=== PATIENT | female | born 1975 | race American Indian/Alaskan Native ===

== ENCOUNTER 2020-11-16 07:37 | Inpatient (IN) | payer OTHER ==
[2020-11-16 09:03] LABS: Basophils % (Auto) 0.3 % (0.0-1.8); Eosinophils % (Auto) 0.1 % (0.0-4.3); Hematocrit 37.1 % (30.3-42.9); Lymphocytes # (Auto) 0.9 K/mm3 (1.2-5.4); Lymphocytes % (Auto) 7.7 % (13.4-35.0); Mean Corpuscular HGB Conc 32 % (30-34); Mean Corpuscular Volume 93 fl (79-97); Monocytes # (Auto) 0.4 K/mm3 (0.0-0.8); Platelet Count 343 K/mm3 (140-440); Red Cell Distribution Width 14.3 % (13.2-15.2)
[2020-11-16 09:25] LABS: Alanine Aminotransferase 12 units/L (7-56); Albumin 4.3 g/dL (3.9-5); Blood Urea Nitrogen 7 mg/dL (7-17); Calcium 9.5 mg/dL (8.4-10.2); Hemolysis Index 4
[2020-11-16 10:11] LABS: BUN/Creatinine Ratio 12
[2020-11-16] MEDS ORDERED: HYDROmorphone 1 MG/1 ML INJ IV ONE ×2 (10:20→14:07)
[2020-11-16] MEDS ORDERED: LACTATED RINGERS 1,000 ML IV ONE (10:20)
[2020-11-16] MEDS ORDERED: ONDANSETRON 4 MG/2 ML INJ IV ONE (10:22)
--- NOTE | 2020-11-16 11:24 | Emergency Department Report ---
ED General Adult HPI - General Chief complaint: Abdominal Pain Stated complaint: ABD PAIN, LOWER BACK PAIN PUI?: No Time Seen by Provider: 11/16/20 10:10 Source: patient, RN notes reviewed Mode of arrival: Ambulatory Limitations: No Limitations - History of Present Illness Initial comments: During the history and physical examination, I am chaperoned by CREWSDANIEL The patient is a 45-year-old female. She is not known to myself previously. She has a history of body mass index of 44.6, history of ovarian cyst, history of colposcopy, reports history of chocolate cyst on the left ovary, subsequent nephrectomy, and history of laparoscopic right-sided cystectomy. The patient does not have a history of renal colic or appendicitis that she is aware of. The patient presents to the ER today with a complaint of right paralumbar lower back pain that radiates to her right flank and right lower quadrant for the past 2 to 3 days. The pain is intermittent. The pain increases with palpation. It decreases with rest. There is nausea. There is no vomiting. There is no dysuria. No history of STI. No sexual partners within the past 6 months. Patient denies headache, neck pain, chest pain, shortness of breath, vomiting, diaphoresis, diarrhea, extremity weakness or numbness. -: Gradual, days(s) Location: back Radiation: abdomen, flank Severity scale (0 -10): 10 Quality: aching Consistency: intermittent Improves with: rest Worsens with: movement - Related Data Allergies Allergy/AdvReac Type Severity Reaction Status Date / Time No Known Allergies Allergy Verified 11/16/20 08:37 ED Review of Systems ROS: Stated complaint: ABD PAIN, LOWER BACK PAIN Other details as noted in HPI Constitutional: denies: fever, malaise, weakness Eyes: denies: eye discharge ENT: denies: epistaxis Respiratory: denies: cough Cardiovascular: denies: chest pain Gastrointestinal: abdominal pain, nausea. denies: vomiting Genitourinary: denies: dysuria Musculoskeletal: back pain Neurological: denies: weakness Hematological/Lymphatic: denies: easy bleeding ED Past Medical Hx - Past Medical History Previous Medical History?: No - Surgical History Past Surgical History?: No ED Physical Exam - General Limitations: No Limitations General appearance: alert, anxious, obese - Head Head exam: Present: atraumatic, normocephalic - Eye Eye exam: Present: normal appearance, EOMI. Absent: nystagmus - ENT ENT exam: Present: normal exam, normal orophraynx, mucous membranes moist, normal external ear exam - Neck Neck exam: Present: normal inspection, full ROM. Absent: tenderness, meningismus - Respiratory Respiratory exam: Present: normal lung sounds bilaterally. Absent: respiratory distress, wheezes, rales, rhonchi, stridor, decreased breath sounds - Cardiovascular Cardiovascular Exam: Present: regular rate, normal rhythm, normal heart sounds. Absent: bradycardia, tachycardia, irregular rhythm, systolic murmur, diastolic murmur, rubs, gallop - GI/Abdominal GI/Abdominal exam: Present: soft, tenderness. Absent: distended, guarding, rebound, rigid, pulsatile mass - Extremities Exam Extremities exam: Present: normal inspection, full ROM, other (2+ pulses noted in the bilateral upper and lower extremities. There is no palpable cord. negative Homans sign. Muscular compartments are soft. The pelvis is stable.). Absent: pedal edema, calf tenderness - Back Exam Back exam: Present: normal inspection, full ROM. Absent: tenderness, CVA tenderness (R), CVA tenderness (L), paraspinal tenderness, vertebral tenderness - Neurological Exam Neurological exam: Present: alert, oriented X3, normal gait, other (No facial droop. Tongue midline. Extraocular movements intact bilaterally. Facial sensation intact to light touch in V1, V2, V3 distribution bilaterally. 5 and a 5 strength in 4 extremities. Sensation intact to light touch in 4 extremities.). Absent: motor sensory deficit - Psychiatric Psychiatric exam: Present: normal affect, normal mood - Skin Skin exam: Present: warm, dry, intact, normal color. Absent: rash ED Course Vital Signs 11/16/20 11/16/20 11/16/20 08:30 08:32 08:34 Temperature 98.4 F Pulse Rate 88 Respiratory 14 14 Rate Blood Pressure 147/66 Blood Pressure 147/66 [Right] O2 Sat by Pulse 99 99 Oximetry 11/16/20 11/16/20 11/16/20 10:20 10:30 11:56 Temperature Pulse Rate 79 73 85 Respiratory 11 L 23 Rate Blood Pressure 147/66 139/58 149/66 Blood Pressure [Right] O2 Sat by Pulse 100 100 Oximetry 11/16/20 11/16/20 11/16/20 12:00 13:12 13:15 Temperature Pulse Rate 95 H 90 84 Respiratory 20 12 16 Rate Blood Pressure 149/66 149/66 149/66 Blood Pressure [Right] O2 Sat by Pulse 97 100 100 Oximetry - Reevaluation(s) Reevaluation #1: 11/16/20 11:22 Differential diagnosis, including but not limited to: Ovarian cyst, renal colic, appendicitis, torsion, PID, inflammatory bowel disease, perforation Assessment and plan: 45-year-old female, who was afebrile, with reassuring vital signs, with appropriate strength, sensation, no pulsatile abdominal mass, known history of ovarian cysts, no risk factors for PID, with back pain that radiates to the right lower quadrant and right lower quadrant tenderness. Place patient on cardiac cath rn. Perform gynecologic examination with reconciliation clerk when patient comfortable and able to tolerate exam. Obtain pelvic ul trasound, and CT scan of the abdomen pelvis. Treat patient's symptoms. Reassess after initial data points. The patient reports that she is not , and has not delivered or given within the past 6 weeks. I have discussed this plan of care with the patient, who is agreeable to the afo rementioned. Reevaluation #2: 11/16/20 12:20 Ultrasound reviewed and appreciated. Urinalysis reviewed and appreciated. Nursing team having difficulty obtaining peripheral IV access. I have evaluated this patient's external superficial upper extremity anatomy. Not able to appreciate any anatomy that would be suitable for cannulation. Patient refusing EJ placement and evaluation. Have advised patient that this will lead to a delay in care, as well as delay in acquisition of diagnostics. We discussed risks, benefits and alternatives. Patient has articulated understanding. Change hydromorphone to IM. Nursing team to contact IV team 11/16/20 12:38 I was able to establish 22-gauge IV aspects in the dorsal aspect of the right hand. CT scan informed that patient may receive her CT scan. 11/16/20 14:20 CT scan abdomen pelvis, pelvic ultrasound reviewed and appreciated. Patient found to have a probable uterine fibroid. She is also found to have a complex heterogeneous masslike lesion in the right adnexa, measuring 7.0 x 5.0 x 6.5 cm. The lesion is noted to be partially cystic, with internal hyperdensity, in the dependent portions of this lesion, suggesting possible hemorrhagic products. Left ovary not visualized secondary to history of surgery. She is also found to have right-sided hydronephrosis. No evidence of nephrolithiasis. Suspect that hydronephrosis is compressive secondary to right adnexal lesion. Contacted urology on-call, Dr. Blackman. Have discussed the patient's history, physical, laboratory studies, imaging findings, and overall clinical impression. He advises that the urology service can follow in consultation. Is amenable to having vascular surgery/interventional radiology consulted as well. Have discussed the patient's history, physical, laboratory studies, imaging studies with our beverage server on-call, Dr. Castillo. She accepts the patient to her service. I have also had extensive discussion with the patient regarding significance of laboratory studies, CT scan findings, and ultrasound findings. Patient declines pelvic examination at this time. Given CT scan and ultrasound findings, overall clinical picture, I think PID is very unlikely. Patient is amenable to admission and hospitalization. Currently awaiting callback from vascular surgery/interventional radiology. - Consultations Consultation #1: 11/16/20 14:29 discussed history physical lab and radiology studies with Dr Ha; his group will follow in consultation - EJ/Peripheral Line Arm R Time Out Performed: Yes Indications: nurses unable to establis Skin Cleansed in Sterile Fashion: Yes Size: 22 Dressing Placed: Tegaderm Patient Tolerated Procedure: other Additional Comments: Minimal infiltration noted, however, distal flow appreciated, patient endorses no pain. ED Medical Decision Making - Lab Data Result diagrams: 11/16/20 08:44 11/16/20 08:44 Vital Signs 11/16/20 11/16/20 11/16/20 08:30 08:32 08:34 Temperature 98.4 F Pulse Rate 88 Respiratory 14 14 Rate Blood Pressure 147/66 Blood Pressure 147/66 [Right] O2 Sat by Pulse 99 99 Oximetry Lab Results 11/16/20 11/16/20 Range/Units 08:44 08:44 WBC 11.1 H (4.5-11.0) K/mm3 RBC 4.00 (3.65-5.03) M/mm3 Hgb 12.0 (10.1-14.3) gm/dl Hct 37.1 (30.3-42.9) % MCV 93 (79-97) fl MCH 30 (28-32) pg MCHC 32 (30-34) % RDW 14.3 (13.2-15.2) % Plt Count 343 (140-440) K/mm3 Lymph % (Auto) 7.7 L (13.4-35.0) % Loup % (Auto) 4.0 (0.0-7.3) % Eos % (Auto) 0.1 (0.0-4.3) % Baso % (Auto) 0.3 (0.0-1.8) % Lymph # (Auto) 0.9 L (1.2-5.4) K/mm3 Loup # (Auto) 0.4 (0.0-0.8) K/mm3 Eos # (Auto) 0.0 (0.0-0.4) K/mm3 Baso # (Auto) 0.0 (0.0-0.1) K/mm3 Seg Neutrophils % 87.9 H (40.0-70.0) % Seg Neutrophils # 9.7 H (1.8-7.7) K/mm3 Sodium 138 (137-145) mmol/L Potassium 3.5 L (3.6-5.0) mmol/L Chloride 102.7 (98-107) mmol/L Carbon Dioxide 28 (22-30) mmol/L Anion Gap 11 mmol/L BUN 7 (7-17) mg/dL Creatinine 0.6 (0.6-1.2) mg/dL Estimated GFR > 60 ml/min BUN/Creatinine Ratio 12 % Glucose 98 (65-100) mg/dL Calcium 9.5 (8.4-10.2) mg/dL Total Bilirubin 0.30 (0.1-1.2) mg/dL AST 14 (5-40) units/L ALT 12 (7-56) units/L Alkaline Phosphatase 62 (35-129) units/L Total Protein 7.0 (6.3-8.2) g/dL Albumin 4.3 (3.9-5) g/dL Albumin/Globulin Ratio 1.6 % Lipase 15 (13-60) units/L - Radiology Data Radiology results: pending, report reviewed, image reviewed [facility] [address] [place] [address] Ultrasound Report Signed Patient: AKASH MONTES MR#: [id number] : Acct:[id number] Age/Sex: 45 / F ADM Date: 11/16/20 Loc: ED Attending Dr: Ordering Physician: RAYMOND SANCHEZ MD Date of Service: 11/16/20 Procedure(s): US transvaginal Accession Number(s): [id number] cc: RAYMOND SANCHEZ MD ULTRASOUND PELVIS COMPLETE ULTRASOUND TRANSVAGINAL INDICATION / CLINICAL INFORMATION: pelvic pain. TECHNIQUE: Transabdominal and Transvaginal. Duplex Color Doppler used: Yes. COMPARISON: None available FINDINGS: UTERUS: Present. - Appearance (if present): Borderline enlarged - Size in cm (if present): 8.7 x 3.7 x 6.1. - Endometrial Complex (if present): No significant abnormality.. Thickness in cm (if measured) = 0.7 - Mass lesions: There appears to be a masslike lesion near the uterine fundus measuring up to 7 cm which presumably represents a fundal fibroid. - Additional findings: None. RIGHT ADNEXA: The right ovary is poorly imaged secondary to body habitus and bowel gas. The right ovary is identified measuring 3.7 x 2.8 x 3.3 cm. No obvious ovarian lesion Normal color Doppler blood flow. LEFT ADNEXA: Not identified. History of surgical removal per the patient. URINARY BLADDER: No significant abnormality. FREE FLUID: Trace free fluid in the cul-de-sac which is likely physiologic ADDITIONAL FINDINGS: None. IMPRESSION: Limited exam secondary to body habitus. An approximate 7 cm fundal fibroid is suspected although poorly imaged on ultrasound. The right ovary is grossly normal. The left ovary has been surgically removed. Trace pelvic ascites . Signer Name: Jamie Gomes Jr, MD Signed: 11/16/2020 11:33 AM Workstation Name: [id number] Transcribed By: TTR Dictated By: JAMIE GOMES JR, MD Electronically Authenticated By: JAMIE GOMES JR, MD Signed Date/Time: 11/16/20 1133 DD/ 1128 [facility] [address] [place] [address] Cat Scan Report Signed Patient: AKASH MONTES MR#: [id number] : 1975 Acct:[id number] Age/Sex: 45 / F ADM Date: 11/16/20 Loc: ED Attending Dr: Ordering Physician: RAYMOND SANCHEZ MD Date of Service: 11/16/20 Procedure(s): CT abdomen pelvis w con Accession Number(s): [id number] cc: RAYMOND SANCHEZ MD CT ABDOMEN AND PELVIS WITH CONTRAST INDICATION / CLINICAL INFORMATION: rlq pain back pain OMNI 300 100ML. TECHNIQUE: Axial CT images were obtained through the abdomen and pelvis after 100 cc IV contrast. Sagittal and coronal reformatted images. All CT scans at this location are performed using CT dose reduction for ALARA by means of automated exposure control. COMPARISON: Pelvic ultrasound performed earlier today FINDINGS: LOWER CHEST: No significant abnormality. LIVER: No significant abnormality. GALLBLADDER: No significant abnormality. BILE DUCTS: No significant abnormality. PANCREAS: No significant abnormality. SPLEEN: No significant abnormality. ADRENALS: No significant abnormality. RIGHT KIDNEY and URETER: There is moderate right hydronephrosis. No obstructing lesion in the right ureter is confidently identified. No focal right renal lesion. LEFT KIDNEY and URETER: No significant abnormality. STOMACH and SMALL BOWEL: No significant abnormality. COLON: No significant abnormality. APPENDIX: No significant abnormality. PERITONEUM: No free fluid. No free air. No fluid collection. LYMPH NODES: No significant adenopathy. AORTA and ARTERIES: No significant abnormality. IVC and VEINS: No significant abnormality. URINARY BLADDER: No significant abnormality. REPRODUCTIVE ORGANS: The uterus is borderline enlarged. An approximate 7 cm heterogeneous mass is identified in the posterior uterine wall. There appear to be small cystic areas within this mass. No calcifications. This presumably represents cystic degeneration of a large uterine fibroid. There is also a complex heterogeneous masslike lesion in the right adnexa measuring 7.0 x 5.0 x 6.5 cm. This lesion appears partially cystic. There is internal hyperdensity in the deep dependent portions of this lesion suggesting possible hemorrhagic products. The left ovary is not visualized. ADDITIONAL FINDINGS: None. SKELETAL SYSTEM: No significant abnormality. IMPRESSION: There is moderate right hydronephrosis. There is no evidence for nephrolithiasis or obvious obstructing lesion in the distal right ureter. This may be secondary to external compression of the right ureter by a right adnexal lesion. Uterine fibroid as described. Complex partially cystic lesion in the right adnexal region which may represent a hemorrhagic ovarian cyst. Signer Name: Jamie Gomes Jr, MD Signed: 11/16/2020 1:43 PM Workstation Name: [id number] Transcribed By: TTR Dictated By: JAMIE GOMES JR, MD Electronically Authenticated By: JAMIE GOMES JR, MD Signed Date/Time: 11/16/20 1343 DD/ 1326 Critical Care Time: Yes Critical care time in (mins) excluding proc time.: 35 Critical care attestation.: If time is entered above; I have spent that time in minutes in the direct care of this critically ill patient, excluding procedure time. ED Disposition Clinical Impression: Complex cyst of uterine adnexa, Right lower quadrant pain, BMI 40.0-44.9, adult Hydronephrosis Qualifiers: Hydronephrosis type: unspecified Qualified Code(s): N13.30 - Unspecified hydronephrosis Uterine fibroid Qualifiers: Uterine leiomyoma location: unspecified location Qualified Code(s): D25.9 - Leiomyoma of uterus, unspecified Disposition: OP ADMIT IP TO THIS HOSP Is pt being admited?: Yes Does the pt Need Aspirin: No Condition: Good Instructions: Abdominal Pain (ED) Referrals: PRIMARY CARE, [Primary Care Provider] - 3-5 Days
[2020-11-16 11:28] LABS: Bilirubin,Urine NEG (Negative); Blood,Urine MOD (Negative); Color,Urine Yellow (Yellow); Mucus,Urine FEW /HPF; Protein,Urine <15 mg/dL mg/dL (Negative); Urobilinogen,Urine < 2.0 mg/dL (<2.0); WBC,Urine < 1.0 /HPF (0.0-6.0)
[2020-11-16 11:30] LABS: HCG Qualitative,Urine Negative (Negative)
--- NOTE | 2020-11-16 11:37 | Ultrasound Report ---
ULTRASOUND PELVIS COMPLETE ULTRASOUND TRANSVAGINAL INDICATION / CLINICAL INFORMATION: pelvic pain. TECHNIQUE: Transabdominal and Transvaginal. Duplex Color Doppler used: Yes. COMPARISON: None available FINDINGS: UTERUS: Present. - Appearance (if present): Borderline enlarged - Size in cm (if present): 8.7 x 3.7 x 6.1. - Endometrial Complex (if present): No significant abnormality.. Thickness in cm (if measured) = 0.7 - Mass lesions: There appears to be a masslike lesion near the uterine fundus measuring up to 7 cm wh ich presumably represents a fundal fibroid. - Additional findings: None. RIGHT ADNEXA: The right ovary is poorly imaged secondary to body habitus and bowel gas. The right ova ry is identified measuring 3.7 x 2.8 x 3.3 cm. No obvious ovarian lesion Normal color Doppler blood f low. LEFT ADNEXA: Not identified. History of surgical removal per the patient. URINARY BLADDER: No significant abnormality. FREE FLUID: Trace free fluid in the cul-de-sac which is likely physiologic ADDITIONAL FINDINGS: None. IMPRESSION: Limited exam secondary to body habitus. An approximate 7 cm fundal fibroid is suspected although poo rly imaged on ultrasound. The right ovary is grossly normal. The left ovary has been surgically removed. Trace pelvic ascites. Signer Name: Jamie Gomes Jr, MD Signed: 11/16/2020 11:33 AM Workstation Name: [id number]
[2020-11-16] MEDS ORDERED: HYDROmorphone 1 MG/1 ML INJ IM ONE (12:21)
[2020-11-16] MEDS ORDERED: ONDANSETRON 4 MG/2 ML INJ ONE (13:12)
--- NOTE | 2020-11-16 13:48 | Cat Scan Report ---
CT ABDOMEN AND PELVIS WITH CONTRAST INDICATION / CLINICAL INFORMATION: rlq pain back pain OMNI 300 100ML. TECHNIQUE: Axial CT images were obtained through the abdomen and pelvis after 100 cc IV contrast. Sagittal and c oronal reformatted images. All CT scans at this location are performed using CT dose reduction for AL SMILEY by means of automated exposure control. COMPARISON: Pelvic ultrasound performed earlier today FINDINGS: LOWER CHEST: No significant abnormality. LIVER: No significant abnormality. GALLBLADDER: No significant abnormality. BILE DUCTS: No significant abnormality. PANCREAS: No significant abnormality. SPLEEN: No significant abnormality. ADRENALS: No significant abnormality. RIGHT KIDNEY and URETER: There is moderate right hydronephrosis. No obstructing lesion in the right u reter is confidently identified. No focal right renal lesion. LEFT KIDNEY and URETER: No significant abnormality. STOMACH and SMALL BOWEL: No significant abnormality. COLON: No significant abnormality. APPENDIX: No significant abnormality. PERITONEUM: No free fluid. No free air. No fluid collection. LYMPH NODES: No significant adenopathy. AORTA and ARTERIES: No significant abnormality. IVC and VEINS: No significant abnormality. URINARY BLADDER: No significant abnormality. REPRODUCTIVE ORGANS: The uterus is borderline enlarged. An approximate 7 cm heterogeneous mass is mary ntified in the posterior uterine wall. There appear to be small cystic areas within this mass. No terry cifications. This presumably represents cystic degeneration of a large uterine fibroid. There is also a complex heterogeneous masslike lesion in the right adnexa measuring 7.0 x 5.0 x 6.5 cm. This lesio n appears partially cystic. There is internal hyperdensity in the deep dependent portions of this les ion suggesting possible hemorrhagic products. The left ovary is not visualized. ADDITIONAL FINDINGS: None. SKELETAL SYSTEM: No significant abnormality. IMPRESSION: There is moderate right hydronephrosis. There is no evidence for nephrolithiasis or obvious obstruct ing lesion in the distal right ureter. This may be secondary to external compression of the right ure ter by a right adnexal lesion. Uterine fibroid as described. Complex partially cystic lesion in the right adnexal region which may represent a hemorrhagic ovarian cyst. Signer Name: Jamie Gomes Jr, MD Signed: 11/16/2020 1:43 PM Workstation Name: [id number]
--- NOTE | 2020-11-16 14:33 | History and Physical Report ---
History of Present Illness Date of examination: 11/16/20 Past History Past Surgical History: no surgical history Medications and Allergies Allergies Allergy/AdvReac Type Severity Reaction Status Date / Time No Known Allergies Allergy Verified 11/16/20 08:37 Active Meds: Active Medications Dextrose/Sodium Chloride (D5/0.45ns) 1,000 mls @ 75 mls/hr IV DIRECT HAYLEY Review of Systems All systems: negative (abdominal pain) - Vital Signs Vital signs: Vital Signs BP Pulse Ox 147/66 99 11/16/20 08:30 11/16/20 08:30 Temp Pulse Resp BP Pulse Ox 98.4 F 84 16 149/66 100 11/16/20 08:32 11/16/20 13:15 11/16/20 13:15 11/16/20 13:15 11/16/20 13:15 - Physical Exam Breasts: Positive: deferred Cardiovascular: Regular rate Lungs: Positive: Clear to auscultation Abdomen: Positive: normal appearance, soft, normal bowel sounds Results Result Diagrams: 11/16/20 08:44 11/16/20 08:44 Abnormal lab results 11/16/20 11/16/20 Range/Units 08:44 08:44 WBC 11.1 H (4.5-11.0) K/mm3 Lymph % (Auto) 7.7 L (13.4-35.0) % Lymph # (Auto) 0.9 L (1.2-5.4) K/mm3 Seg Neutrophils % 87.9 H (40.0-70.0) % Seg Neutrophils # 9.7 H (1.8-7.7) K/mm3 Potassium 3.5 L (3.6-5.0) mmol/L All other labs normal. Assessment and Plan adnexal mass with pelvic ascites and right hydronephrosis Plan for admission Pain meds tumor markers MRI d/c to home when stable with [facility] referral for management * no evidence of acute abdomen, would not consider patient an appropriate surgic al candidate w/out [facility] for staging. Minal Castillo MD
--- NOTE | 2020-11-16 14:35 | Event Note ---
Date: 11/16/20 45 year old female who presents with right sided hydronephrosis with an obstructing right adnexal lesion. Adnexal lesion likely represents hemorrhagic cyst. Endometrioma is also in the differential. This mass is not amenable to CT guided drain placement, but could be amenable to aspiration. However, the amount of fluid removed is unlikely to be significant as blood products do not drain easily with small gauge needles. Recommend ob-rn obgyn and urology consult. Consider ureteral stent placement until cystic lesion spontaneously improves at which time stent can be removed.
[2020-11-16] MEDS ORDERED: ACETAMINOPHEN 325 MG TAB PO PRN (15:00)
[2020-11-16] MEDS ORDERED: BUTORPHANOL 2 MG/1 ML INJ IV PRN (15:00)
[2020-11-16] MEDS: LACTATED RINGERS 1,000 ML IV SCH (19:55)
[2020-11-16] MEDS: fentaNYL 100 MCG/2 ML INJ IV PRN ×2 (19:59→22:59)
[2020-11-17] MEDS: D5W/0.45% NACL 1,000 ML IV SCH (02:27)
[2020-11-17] MEDS: fentaNYL 100 MCG/2 ML INJ IV PRN ×7 (05:33→23:26)
--- NOTE | 2020-11-17 08:13 | Consultation ---
History of Present Illness - Reason for Consult Consult date: 11/16/20 - History of Present Illness new to our service The patient is a 45-year-old female. She has a history of body mass index of 44.6, history of ovarian cyst, history of colposcopy, reports history of chocolate cyst on the left ovary and history of laparoscopic right-sided cystectomy. The patient does not have a history of renal colic or appendicitis that she is aware of. The patient presents to the ER today with a complaint of right paralumbar lower back pain that radiates to her right flank and right lower quadrant for the past 2 to 3 days. The pain is intermittent. The pain increases with palpation. It decreases with rest. There is nausea. There is no vomiting. There is no dysuria. No history of STI. No sexual partners within the past 6 months. abd soft rtflank & back pain a/p rt hydro WBC 11k/ no temp obs may need cysto stent Medications and Allergies Allergies Allergy/AdvReac Type Severity Reaction Status Date / Time No Known Allergies Allergy Verified 11/16/20 08:37 Active Meds: Active Medications Acetaminophen (Acetaminophen 325 Mg Tab) 650 mg PO Q4H PRN PRN Reason: Pain, Mild (1-3) Butorphanol Tartrate (Butorphanol 2 Mg/1 Ml Inj) 1 mg IV Q2H PRN PRN Reason: Pain, Moderate(4-6) LABOR PAIN Fentanyl (Fentanyl 100 Mcg/2 Ml Inj) 100 mcg IV Q2H PRN PRN Reason: Pain, Moderate (4-6) Last Admin: 11/17/20 05:33 Dose: 100 mcg Documented by: Dextrose/Sodium Chloride (D5/0.45ns) 1,000 mls @ 75 mls/hr IV DIRECT HAYLEY Last Admin: 11/17/20 02:27 Dose: 75 mls/hr Documented by: Lactated Ringer's (Lactated Ringers) 1,000 mls @ 125 mls/hr IV DIRECT HAYLEY Last Admin: 11/16/20 19:55 Dose: 125 mls/hr Documented by: Exam - Constitutional Vitals: Temp Pulse Resp BP Pulse Ox 99.0 F 81 18 120/68 94 11/17/20 07:35 11/17/20 07:35 11/17/20 07:35 11/17/20 07:35 11/17/20 07:35 Results - Labs CBC & Chem 7: 11/16/20 08:44 11/16/20 08:44 Labs: Abnormal lab results 11/16/20 11/16/20 Range/Units 08:44 08:44 WBC 11.1 H (4.5-11.0) K/mm3 Lymph % (Auto) 7.7 L (13.4-35.0) % Lymph # (Auto) 0.9 L (1.2-5.4) K/mm3 Seg Neutrophils % 87.9 H (40.0-70.0) % Seg Neutrophils # 9.7 H (1.8-7.7) K/mm3 Potassium 3.5 L (3.6-5.0) mmol/L
--- NOTE | 2020-11-17 09:05 | Progress Note ---
Subjective Date of service: 11/17/20 Interval history: new to our service The patient is a 45-year-old female. She has a history of body mass index of 44.6, history of ovarian cyst, history of colposcopy, reports history of chocolate cyst on the left ovary and history of laparoscopic right-sided cystectomy. The patient does not have a history of renal colic or appendicitis that she is aware of. The patient presents to the ER today with a complaint of right paralumbar lower back pain that radiates to her right flank and right lower quadrant for the past 2 to 3 days. The pain is intermittent. The pain increases with palpation. It decreases with rest. There is nausea. There is no vomiting. There is no dys uria. No history of STI. No sexual partners within the past 6 months. abd soft rtflank & back pain---better a/p rt hydro WBC 11k/ no temp obs await drug and alcohol counsellor input Objective - Constitutional Vitals: Vital Signs - 12hr 11/17/20 11/17/20 11/17/20 00:25 05:48 07:35 Temperature 99.1 F 99.5 F 99.0 F Pulse Rate 78 94 H 81 Respiratory 16 15 18 Rate Blood Pressure 117/58 120/68 Blood Pressure 151/77 [Left] O2 Sat by Pulse 97 96 94 Oximetry - Labs CBC & Chem 7: 11/16/20 08:44 11/16/20 08:44 Labs: Abnormal lab results 11/16/20 11/16/20 Range/Units 08:44 08:44 WBC 11.1 H (4.5-11.0) K/mm3 Lymph % (Auto) 7.7 L (13.4-35.0) % Lymph # (Auto) 0.9 L (1.2-5.4) K/mm3 Seg Neutrophils % 87.9 H (40.0-70.0) % Seg Neutrophils # 9.7 H (1.8-7.7) K/mm3 Potassium 3.5 L (3.6-5.0) mmol/L Medications & Allergies - Medications Allergies/Adverse Reactions: Allergies No Known Allergies Allergy (Verified 11/16/20 08:37) Active Medications: Generic Name Dose Route Start Last Admin Trade Name Freq PRN Reason Stop Dose Admin Acetaminophen 650 mg 11/16/20 15:00 Acetaminophen 325 Mg Tab PO Q4H PRN Pain, Mild (1-3) Butorphanol Tartrate 1 mg 11/16/20 15:00 Butorphanol 2 Mg/1 Ml Inj IV Q2H PRN Pain, Moderate(4-6) LABOR PAIN Fentanyl 100 mcg 11/16/20 15:00 11/17/20 08:43 Fentanyl 100 Mcg/2 Ml Inj IV 100 mcg Q2H PRN Administration Pain, Moderate (4-6) Dextrose/Sodium Chloride 1,000 mls @ 75 mls/hr 11/16/20 15:00 11/17/20 02:27 D5/0.45ns IV 75 mls/hr DIRECT HAYLEY Administration Lactated Ringer's 1,000 mls @ 125 mls/hr 11/16/20 14:30 11/16/20 19:55 Lactated Ringers IV 125 mls/hr DIRECT HAYLEY Administration
--- NOTE | 2020-11-17 09:15 | Progress Note ---
Assessment and Plan PT 'S PAIN IS BETTER. WILL CONTINUE PRESENT MEDS WITH POSSIBLE D/C IN AM. 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 Subjective Date of service: 11/17/20 Principal diagnosis: pelvic pain, degenerating fibroid, right hydronephrosis Interval history: see H&P. Objective - Constitutional Vitals: Vital Signs - 12hr 11/17/20 11/17/20 11/17/20 00:25 05:48 07:35 Temperature 99.1 F 99.5 F 99.0 F Pulse Rate 78 94 H 81 Respiratory 16 15 18 Rate Blood Pressure 117/58 120/68 Blood Pressure 151/77 [Left] O2 Sat by Pulse 97 96 94 Oximetry General appearance: Present: no acute distress, well-nourished - Gastrointestinal General gastrointestinal: Present: soft, non-tender, non-distended, normal bowel sounds - Genitourinary Female genitourinary: normal - Labs CBC & Chem 7: 11/16/20 08:44 11/16/20 08:44 Labs: Abnormal lab results 11/16/20 Range/Units 08:44 Potassium 3.5 L (3.6-5.0) mmol/L Medications & Allergies - Medications Allergies/Adverse Reactions: Allergies No Known Allergies Allergy (Verified 11/16/20 08:37) Active Medications: Generic Name Dose Route Start Last Admin Trade Name Freq PRN Reason Stop Dose Admin Acetaminophen 650 mg 11/16/20 15:00 Acetaminophen 325 Mg Tab PO Q4H PRN Pain, Mild (1-3) Butorphanol Tartrate 1 mg 11/16/20 15:00 Butorphanol 2 Mg/1 Ml Inj IV Q2H PRN Pain, Moderate(4-6) LABOR PAIN Fentanyl 100 mcg 11/16/20 15:00 11/17/20 08:43 Fentanyl 100 Mcg/2 Ml Inj IV 100 mcg Q2H PRN Administration Pain, Moderate (4-6) Dextrose/Sodium Chloride 1,000 mls @ 75 mls/hr 11/16/20 15:00 11/17/20 02:27 D5/0.45ns IV 75 mls/hr DIRECT HAYLEY Administration Lactated Ringer's 1,000 mls @ 125 mls/hr 11/16/20 14:30 11/16/20 19:55 Lactated Ringers IV 125 mls/hr DIRECT HAYLEY Administration
[2020-11-17] MEDS: LACTATED RINGERS 1,000 ML IV SCH ×3 (15:01→23:25)
[2020-11-17] MEDS: IBUPROFEN 800 MG TAB PO SCH (20:16)
--- NOTE | 2020-11-18 07:48 | Progress Note ---
Subjective Date of service: 11/18/20 Principal diagnosis: pelvic pain, degenerating fibroid, right hydronephrosis Interval history: new to our service The patient is a 45-year-old female. She has a history of body mass index of 44.6, history of ovarian cyst, history of colposcopy, reports history of chocolate cyst on the left ovary and history of laparoscopic right-sided cystectomy. The patient does not have a history of renal colic or appendicitis that she is aware of. The patient presents to the ER today with a complaint of right paralumbar lower back pain that radiates to her right flank and right lower quadrant for the past 2 to 3 days. The pain is intermittent. The pain increases with palpation. It decreases with rest. There is nausea. There is no vomiting. There is no d ysuria. No history of STI. No sexual partners within the past 6 months. abd soft rtflank & back pain---better a/p rt hydro Rt flank pain better no temp regular diet home from gu standpoint f/u at [place] (primary doctors) Objective - Constitutional Vitals: Vital Signs - 12hr 11/17/20 11/17/20 11/17/20 20:04 20:16 23:26 Temperature 100.8 F H Pulse Rate 82 Respiratory 18 18 18 Rate Blood Pressure 160/69 Blood Pressure [Left] O2 Sat by Pulse 100 Oximetry 11/18/20 11/18/20 00:44 05:02 Temperature 98.6 F 98.6 F Pulse Rate 71 77 Respiratory 18 16 Rate Blood Pressure 136/64 Blood Pressure 105/78 [Left] O2 Sat by Pulse 100 Oximetry - Labs CBC & Chem 7: 11/16/20 08:44 11/16/20 08:44 Medications & Allergies - Medications Allergies/Adverse Reactions: Allergies No Known Allergies Allergy (Verified 11/16/20 08:37) Home Medications: Home Medications Medication Instructions Recorded Confirmed Last Taken Type No Known Home Medications [No 11/17/20 11/17/20 Unknown History Reported Home Medications] Active Medications: Generic Name Dose Route Start Last Admin Trade Name Freq PRN Reason Stop Dose Admin Acetaminophen 650 mg 11/16/20 15:00 Acetaminophen 325 Mg Tab PO Q4H PRN Pain, Mild (1-3) Butorphanol Tartrate 1 mg 11/16/20 15:00 Butorphanol 2 Mg/1 Ml Inj IV Q2H PRN Pain, Moderate(4-6) LABOR PAIN Fentanyl 100 mcg 11/16/20 15:00 11/17/20 23:26 Fentanyl 100 Mcg/2 Ml Inj IV 100 mcg Q2H PRN Administration Pain, Moderate (4-6) Dextrose/Sodium Chloride 1,000 mls @ 75 mls/hr 11/16/20 15:00 11/17/20 02:27 D5/0.45ns IV 75 mls/hr DIRECT HAYLEY Administration Lactated Ringer's 1,000 mls @ 125 mls/hr 11/16/20 14:30 11/17/20 23:25 Lactated Ringers IV 125 mls/hr DIRECT HAYLEY Administration Ibuprofen 800 mg 11/17/20 20:00 11/17/20 20:16 Ibuprofen 800 Mg Tab PO 800 mg TID HAYLEY Administration
[2020-11-18] MEDS: D5W/0.45% NACL 1,000 ML IV SCH (07:54)
[2020-11-18] MEDS: fentaNYL 100 MCG/2 ML INJ IV PRN (07:54)
[2020-11-18] MEDS: IBUPROFEN 800 MG TAB PO SCH (08:01)
--- NOTE | 2020-11-18 10:46 | Discharge Summary ---
Providers - Providers Date of Admission: 11/16/20 14:28 Date of discharge: 11/18/20 Attending physician: GIRMA SOLARES MD 11/16/20 14:15 Consult to Physician [CONS] Urgent Comment: Consulting Provider: JD RUSS Physician Instructions: Reason For Exam: hydronephrosis Consult to Physician [CONS] Urgent Comment: Consulting Provider: TIFFANY DEJESUS Physician Instructions: Reason For Exam: hydronephrosis Primary care physician: [facility]AIL[facility] Hospitalization Reason for admission: other (pain associated with known fibroids) Hospital course: Known history of uterine fibroids with [facility] care at [place] presenting with significant lower abdominal pelvic pain likely associated with 7 centimeter uterine fibroid. Patient also noted to have mild hydronephrosis. Patient's pain was managed with IV and p.o. pain medication with good effect. Patient was also evaluated by urology they recommended nonurgent urology outpatient follow- up. Discharged in good condition on hospital day 3. Condition at discharge: Fair Disposition: - TO HOME OR SELFCARE Plan - Discharge Medications Prescriptions: Ibuprofen [Motrin 800 MG tab] 800 mg PO TID PRN #90 tablet PRN Reason: Pain, Moderate (4-6) oxyCODONE /ACETAMINOPHEN [Percocet 5/325] 1 tab PO Q6HR PRN #20 tablet PRN Reason: Pain , Severe (7-10) - Provider Discharge Summary Activity: routine Diet: routine Instructions: routine Additional instructions: [] Smoking cessation referral if applicable(refer to patient education folder for contact #) [] Refer to [facility]'s [facility] Booklet Call your doctor immediately for: * Fever > 100.5 * Heavy vaginal bleeding ( >1 pad per hour) * Severe persistent headache * Shortness of breath * Reddened, hot, painful area to leg or breast * Drainage or odor from incision. * Keep incision clean and dry at all times and follow doctor's instructions regarding bathing/showering - Follow up plan Follow up: PRIMARY CARE, [Primary Care Provider] - 3-5 Days
[2020-11-18 13:20] VITALS: BP 114/53
== END 2020-11-18 12:20 | disposition home or self-care (01) | DRG 760 ==
LOC: ED 07:37 → OB 14:28
PROVIDERS: ADMIT Obstetrics & Gynecology; ATTEND Obstetrics & Gynecology
PROC: 06HY33Z Insertion of Infusion Device into Lower Vein, Percutaneous Approach (ICD-10-PCS; principal; 2020-11-16)
DX: D25.9 Leiomyoma of uterus, unspecified (principal); N13.30 Unspecified hydronephrosis; Z68.41 Body mass index [BMI] 40.0-44.9, adult; N83.8 Other noninflammatory disorders of ovary, fallopian tube and broad ligament; E66.9 Obesity, unspecified; Z90.5 Acquired absence of kidney
CPT/HCPCS: 36415; 74177; 76830; 80053; 81001; 81025; 82106; 82378; 83690; 85025; 86301; 86304; 87591; 93975; 96374; G0378; J1170; J2405; J3010; J7120; Q9967; U0003